=== PATIENT | male | born 1965 | race Two or more races ===

== ENCOUNTER 2020-02-12 06:20 | Day surgery (SDC) | payer OTHER ==
[~2020-02-12 06:20] MED LIST: BENICAR HCT 401 EACH PO; NEXIUM40 M1 PO
== END 2020-02-12 16:30 | disposition home or self-care (01) ==
LOC: CIR.AMB 06:20
PROVIDERS: ATTEND Colon & Rectal Surgery
DX: K64.8 Other hemorrhoids (principal); K64.4 Residual hemorrhoidal skin tags; Z20.828 Contact with and (suspected) exposure to other viral communicable diseases